=== PATIENT | male | born 1945 | race African-American/Black ===

== ENCOUNTER 2016-10-24 14:11 | Emergency (ER) | payer MEDICARE, MEDICAID ==
[~2016-10-24] VITALS: Ht 190.5 cm; Wt 80.0 kg
[~2016-10-24 14:11] MED LIST: ALBU18HF2 IH; CALC0.5C6 PO; CHOL100046 PO; FESO4TAB PO; FINA5TAB11 PO; INSU100I4 SQ; MULT-1146 PO; NEOM500T PO; OMEG1CAP17 PO; OXYC30TA89 PO; TAMS0.4C31 PO; TEMA15CA PO
[2016-10-24] MEDS ORDERED: IPRATROPIUM/ALBUTEROL 0.5-3(2.5)MG/3ML NEB HHN ONE (15:30)
[2016-10-24 18:20] VITALS: BP 104/58
== END 2016-10-24 18:30 | disposition home or self-care (01) ==
LOC: ER 14:12
DX: S22.32XA Fracture of one rib, left side, initial encounter for closed fracture (principal); S27.9XXA Injury of unspecified intrathoracic organ, initial encounter; W18.12XA Fall from or off toilet with subsequent striking against object, initial encounter; Y93.89 Activity, other specified; Y92.091 Bathroom in other non-institutional residence as the place of occurrence of the external cause; E11.9 Type 2 diabetes mellitus without complications; Z79.4 Long term (current) use of insulin; J44.9 Chronic obstructive pulmonary disease, unspecified; J45.909 Unspecified asthma, uncomplicated; N28.9 Disorder of kidney and ureter, unspecified; K76.9 Liver disease, unspecified
CPT/HCPCS: 71111; 94640; 99284; J7620